=== PATIENT | male | born 1970 | race Caucasian/White ===

== ENCOUNTER → 2024-03-12 12:26 | Outpatient (BNVA) | payer OTHER, SELFPAY | PROVIDERS: Visit Provider Surgery ==

== ENCOUNTER 2024-03-25 08:00 | Outpatient (AMB) | payer OTHER, SELFPAY ==
--- NOTE | 2024-03-25 08:00 | MHC.OFFVISWM ---
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 BMI 53.2: Details: Start time: 7.50am, End time: 8.37am ?I spent 42 minutes speaking with the patient on the phone plus an additional 5 minutes reviewing and updating records for a total of 47 minutes HPI Comments Details: Previous weight loss efforts: self diets and exercise Wakes up: 6am, Sleeps: 11pm Breakfast: 8.30am (eggs, toast, of left over from previous day) Lunch: 1.30pm (left over) Dinner: 5-7pm (meat, potatoes, squash, rice, fish) Snacks: 11am (chips, cookies, donuts), 4pm (cashews), , 9pm (chips, donuts, cookies) Exercise: none Fluids: Coffee: none, tea: none, soda: orange dry (daily), juice: apple juice, ETOH: none PFSH Medical History (Updated 03/25/24 @ 08:18 by Seng Mark MD) BRAXTON on CPAP GERD (gastroesophageal reflux disease) Morbid obesity Surgical History (Updated 03/13/24 @ 08:25 by Angelica Garcia CMA) Hx of tooth extraction Hx of bladder endoscopy Family History (Updated 03/13/24 @ 08:25 by Angelica Garcia CMA) Mother No problems noted. Father No problems noted. Social History (Updated 03/13/24 @ 08:25 by Angelica Garcia CMA) Alcohol intake: never Patient Tobacco Use Status: Never used Tobacco Telehealth Telehealth Telehealth Platform: Telephone Location of provider rendering services: practice address Location of patient: address on file Patient Identification confirmed using: Name, : Yes Telehealth method: voice only Patient verbally consented to treatment: Yes Patient verbally consented to billing insurance company: Yes Patient informed of any privacy concerns related to visit: Yes Minutes spent on Phone/Video with Pt.: 47 Assessment & Plan Assessment & Plan (1) Morbid obesity: Code(s): E66.01 - Morbid (severe) obesity due to excess calories Category: Medical Plan: 1.? Plan for lap sleeve gastrectomy. If diaphragmatic or ventral hernias are present at time of surgery, these will be repaired laparoscopically as well. 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 I emphasized the importance of close follow-up, adherence to instructions and good communication. Meal to include lean meat (beef, fish, pork, turkey, chicken), or maori yogurt, or egg whites, or beans with a salad with olive oil and fruits (berries, pears, apples, kiwi). Avoid salt, breads, potatoes, rice, pasta, desserts. ?3. If you choose shakes, each shake would be drunk slowly, like coffee in a period of 2 hours. ?4. If you choose bars, cut each bar in 4 pieces and eat each piece in 30min ?to make each bar last 2 hours. ?5. I emphasized the importance of measuring accurately the food portion and measure it when serving the food in plate ?6. The meal portions include a specific number of forks of meat and salad. You always eat the meat portion but you can replace up to half of salad/vegetables portion with rice, potatoes or pasta, or a fruit ?if you like. The less you do it the better weight loss will be. ?7. One full-size fork is what it can be scooped on the fork without falling aside and not what can be bit with the fork. Use regular forks like those you find in a typical restaurant. ?8.? Please send me weight measurements as soon as possible and then once a week. Always include your diet and exercise plan. 9. The best choice would be to purchase a stationary bike, elliptical or treadmill at home that can track calories. Let me know if you do so I can give you an exercise plan. ?10.?Goal is to lose at least 1.5-2lbs per week ?12. Goal to lose 10% of your weight before surgery, which is about 38lbs. Ultimate weight goal: 243lbs before surgery 13. Please follow the diet plan exactly without any change. If you don't like something about the plan or you feel hungry you need to communicate with me so I can help you revise the plan. You should not change the plan yourself. 14. To be scheduled for EGD due to history of GERD. The possibility of biopsies was discussed. Patient needs to avoid use of NSAIDs and aspirin for 1 week prior to EGD. Risks of perforation and bleeding was discussed with the patient. This will be an outpatient procedure with IV sedation. Orders: Orders Hemoglobin A1c Today E66.01 - Morbid (severe) obesity due to excess calories, G47.33 - Obstructive sleep apnea (adult) (pediatric), K21.9 - Gastro-esophageal reflux disease without esophagitis Complete Blood Count Auto Diff Today E66.01 - Morbid (severe) obesity due to excess calories, G47.33 - Obstructive sleep apnea (adult) (pediatric), K21.9 - Gastro-esophageal reflux disease without esophagitis Lipid Panel Today E66.01 - Morbid (severe) obesity due to excess calories, G47.33 - Obstructive sleep apnea (adult) (pediatric), K21.9 - Gastro-esophageal reflux disease without esophagitis Comprehensive Met. Panel Today E66.01 - Morbid (severe) obesity due to excess calories, G47.33 - Obstructive sleep apnea (adult) (pediatric), K21.9 - Gastro-esophageal reflux disease without esophagitis Vitamin B12 and Folate Today E66.01 - Morbid (severe) obesity due to excess calories, G47.33 - Obstructive sleep apnea (adult) (pediatric), K21.9 - Gastro-esophageal reflux disease without esophagitis Ferritin Today E66.01 - Morbid (severe) obesity due to excess calories, G47.33 - Obstructive sleep apnea (adult) (pediatric), K21.9 - Gastro-esophageal reflux disease without esophagitis ECG 12 lead EKG Today E66.01 - Morbid (severe) obesity due to excess calories, G47.33 - Obstructive sleep apnea (adult) (pediatric), K21.9 - Gastro-esophageal reflux disease without esophagitis Insulin Today E66.01 - Morbid (severe) obesity due to excess calories, G47.33 - Obstructive sleep apnea (adult) (pediatric), K21.9 - Gastro-esophageal reflux disease without esophagitis H Pylori Breath Test Today E66.01 - Morbid (severe) obesity due to excess calories, G47.33 - Obstructive sleep apnea (adult) (pediatric), K21.9 - Gastro-esophageal reflux disease without esophagitis IRON PROFILE Today E66.01 - Morbid (severe) obesity due to excess calories, G47.33 - Obstructive sleep apnea (adult) (pediatric), K21.9 - Gastro-esophageal reflux disease without esophagitis Zinc Today E66.01 - Morbid (severe) obesity due to excess calories, G47.33 - Obstructive sleep apnea (adult) (pediatric), K21.9 - Gastro-esophageal reflux disease without esophagitis C Reactive Protein Today E66.01 - Morbid (severe) obesity due to excess calories, G47.33 - Obstructive sleep apnea (adult) (pediatric), K21.9 - Gastro-esophageal reflux disease without esophagitis Vitamin B1 Today E66.01 - Morbid (severe) obesity due to excess calories, G47.33 - Obstructive sleep apnea (adult) (pediatric), K21.9 - Gastro-esophageal reflux disease without esophagitis Vitamin A Today E66.01 - Morbid (severe) obesity due to excess calories, G47.33 - Obstructive sleep apnea (adult) (pediatric), K21.9 - Gastro-esophageal reflux disease without esophagitis TSH reflex Free T4 Today E66.01 - Morbid (severe) obesity due to excess calories, G47.33 - Obstructive sleep apnea (adult) (pediatric), K21.9 - Gastro-esophageal reflux disease without esophagitis Vitamin D 25-OH Total Today E66.01 - Morbid (severe) obesity due to excess calories, G47.33 - Obstructive sleep apnea (adult) (pediatric), K21.9 - Gastro-esophageal reflux disease without esophagitis US abdomen comp w elastography Today E66.01 - Morbid (severe) obesity due to excess calories, G47.33 - Obstructive sleep apnea (adult) (pediatric), K21.9 - Gastro-esophageal reflux disease without esophagitis XR chest 2V Today E66.01 - Morbid (severe) obesity due to excess calories, G47.33 - Obstructive sleep apnea (adult) (pediatric), K21.9 - Gastro-esophageal reflux disease without esophagitis FL upper GI w air Today E66.01 - Morbid (severe) obesity due to excess calories, G47.33 - Obstructive sleep apnea (adult) (pediatric), K21.9 - Gastro-esophageal reflux disease without esophagitis Referrals Behavioral Health Referral E66.01 - Morbid (severe) obesity due to excess calories, G47.33 - Obstructive sleep apnea (adult) (pediatric), K21.9 - Gastro-esophageal reflux disease without esophagitis Nutrition/Dietitian Referral E66.01 - Morbid (severe) obesity due to excess calories, G47.33 - Obstructive sleep apnea (adult) (pediatric), K21.9 - Gastro-esophageal reflux disease without esophagitis
--- OUTSIDE RECORDS SUMMARY | 2024-03-25 08:02 | XMS_ITS | Continuity of Care Document ---
Author Organization [facility] Address [address] [place] [id number]- Care Team Providers Care Health Careers Instructor Name Role Phone Amy Robledo NP Primary Care Physician Encounter [facility] [place] Date(s): 11/10/23 - 12/10/23 [facility] [address] [place] [place] [phone]- [place] Allergies, Adverse Reactions, Alerts Substance Reaction Severity Status Bactrim Hives Active Medications CPAP Machine See Instructions, # 1 each, Refills 12, Tot. Refills 12, Maintenance, CPAP @ 11 CM H20 EPR 3 RAMP PRN ALL PAP SUPPLIES: TUBING, HEADGEAR, CHIN STRAP, CLIMATE CONTROL LINE, FULL FACE/NASAL MASK, HEATED HUMIDIFIER, WATER CHAMBER AND FILTERS DX BRAXTON (... Start Date: 07/22/23 Status: Ordered Problem List Condition Confirmation Course Effective Dates Status Health St atus Informant Obesity, Class III, BMI 40-49.9 (morbid obesity) Confirmed Active Obstructive sleep apnea 1 Confirmed Active Severe obesity Confirmed Active 1AHI 34.1, [facility], 09/19/14. CPAP at 11 cm H2O reduced AHI of 0, [facility], 01/03/15. Social History Social History Type Response Smoking Status Never smoker entered on: 03/10/15 Sex Patient Care team information Care Team Personnel Name: Amy Robledo NP Position: Reference Physician Member Role: PCP Address: Address: [address] [place] [address]- Name: Sonia Macias DO Position: S TEST DIRECTOR MD Member Role: Lifetime TEST DIRECTOR Physician Address: Address: [address] [place] [address] [address] Care Team Related Persons Name: STEPHANIE OMER Address: home [address] [place] [address] Name: GABRIEL OMER Address: home [address] [place] [address] Name: STEPHANIE HAHN Address: home [address] [place] [address]
--- OUTSIDE RECORDS SUMMARY | 2024-03-25 08:02 | XMS_ITS | Continuity of Care Document ---
Author Organization [facility] Address [address] [place] [address]- Care Team Providers Care Roller Leveler Name Role Phone Amy Robledo NP Primary Care Physician Encounter [facility] Date(s): 01/17/24 - 02/16/[address] [address]- Allergies, Adverse Reactions, Alerts Substance Reaction Severity [...] Active Severe obesity Confirmed Active 1AHI 34.1, [facility] [place]. CPAP at 11 cm H2O reduced AHI of 0, [facility] [place]. Social History Social History Type Response Smoking Status Never smoker entered on: 03/10/15 Sex Patient Care team information Care Team Personnel Name: Amy Robledo NP Position: Reference Physician Member Role: PCP Address: Address: [address] [place] [id number]- Name: Sonia Macias DO Position: S TYPISTS SUPERVISOR MD Member Role: Lifetime TYPISTS SUPERVISOR Physician Address: Address: [address] [place] [address] [address]- Care Team Related Persons Name: STEPHANIE OMER Address: [address] [place] [address] Name: GABRIEL OMER Address: [address] [place] [address] Name: STEPHANIE HAHN Address: home [address] [place] [address]
--- OUTSIDE RECORDS SUMMARY | 2024-03-25 08:02 | XMS_ITS | Continuity of Care Document ---
Author Organization [facility] Address [address] [place] [address]- Care Team Providers Care Editorial Project Manager Name Role Phone Merrick HOFFMAN, Zulay Primary Care Physician Encounter [facility] [place] Date(s): 05/05/20 - 06/04/20 [facility] [address] [place] [phone]- Allergies, Adverse Reactions, Alerts Substance Reaction Severity Status Bactrim Hives Active Medications CPAP Machine See Instructions, # 1 each, Refills 12, Tot. Refills 12, Maintenance, CPAP @ 11 CM H20 EPR 3 RAMP PRN ALL PAP SUPPLIES: TUBING, HEADGEAR, CHIN STRAP, CLIMATE CONTROL LINE, FULL FACE/NASAL MASK, HEATED HUMIDIFIER, WATER CHAMBER AND FILTERS DX BRAXTON (... Start Date: 03/10/15 Status: Ordered CPAP Equipment See Instructions, # 1 each, Refills 11, Tot. Refills 11, Maintenance, DX: G47.33 Change pressure [id number], EPR [id number] Supplies AirFit F30 lg. or pt. pref., climate line tubing, heated humidifierwith filters and chamber, headgear/chinstrap, etc.... Start Date: 07/05/18 Status: Ordered Problem List Condition Effective Dates Status Health Status Inform ant Obesity, Class III, BMI 40-4 9.9 (morbid obesity)(Confirmed) Active Obstructive sleep apnea(Confirmed) 1 Active 1AHI 34.1, [facility], 09/19/14. CPAP at 11 cm H2O reduced AHI of 0, [facility], 01/03/15. Social History Social History Type Response Smoking Status Never smoker entered on: 03/10/15 Sex
[2024-03-25 08:10] VITALS: BMI 53.1
== END 2024-03-25 08:37 | disposition home or self-care (01) ==
LOC: HO.HBS 08:00
PROVIDERS: Visit Provider Surgery
DX: E66.813 Obesity, class 3 (principal); Z68.43 Body mass index [BMI] 50.0-59.9, adult
CPT/HCPCS: 99204

== ENCOUNTER → 2024-03-25 08:00 | Outpatient (BNVA) | payer OTHER, SELFPAY | PROVIDERS: Visit Provider Surgery ==